=== PATIENT | female | born 1975 | race Two or more races ===

== ENCOUNTER 2017-06-27 17:00 | Emergency (ER) | payer MEDICAID, OTHER ==
[~2017-06-27] VITALS: Ht 172.7 cm; Wt 78.9 kg
[2017-06-27] MEDS ORDERED: ALPRAZolam 0.25 MG TAB ONE (20:00)
[2017-06-27] MEDS ORDERED: ALPRAZolam 0.5 MG TAB PO ONE (20:15)
[2017-06-27 20:40] VITALS: BP 124/65
== END 2017-06-27 20:56 | disposition home or self-care (01) ==
LOC: ER 17:00
DX: F41.1 Generalized anxiety disorder (principal)

== ENCOUNTER 2019-02-24 03:32 | Observation (INO) | payer MEDICAID ==
[~2019-02-24] VITALS: Ht 152.4 cm; Wt 108.9 kg
[2019-02-24 05:02] LABS: Alcohol, Urine < 3.0 mg/dL (0-5); Amphetamine Screen, Urine NEGATIVE (NEGATIVE); Barbiturate Scree,Urine NEGATIVE (NEGATIVE); Benzodiazephine Screen, Urine NEGATIVE (NEGATIVE); Cannabinoid Screen, Urine NEGATIVE (NEGATIVE); Cocaine Screen, Urine NEGATIVE (NEGATIVE); Opiate Scree,Urine NEGATIVE (NEGATIVE); Phencyclidine Screen, Urine NEGATIVE (NEGATIVE)
[2019-02-24 05:14] LABS: Urine Bacteria FEW /hpf (None Seen); Urine Blood Negative /uL (Negative); Urine WBC 7 /hpf (0 - 5)
[2019-02-24] MEDS ORDERED: TERBUTALINE SULFATE 1 MG/ML 1ML VIAL SC ONE (05:57)
[2019-02-24] MEDS ORDERED: TERBUTALINE SULFATE 1 MG/ML 1ML VIAL SC SCH (06:00)
== END 2019-02-24 06:50 | disposition home or self-care (01) | DRG 566 ==
LOC: LDRP 03:32
PROVIDERS: ADMIT Obstetrics & Gynecology; ATTEND Obstetrics & Gynecology
DX: O42.913 Preterm premature rupture of membranes, unspecified as to length of time between rupture and onset of labor, third trimester (principal); Z3A.36 36 weeks gestation of pregnancy; Z87.891 Personal history of nicotine dependence
CPT/HCPCS: 59025; 76818; 80307; 81001; 81002; 96372; G0378; J3105